=== PATIENT | female | born 1945 | race Caucasian/White ===

== ENCOUNTER 2021-06-22 05:31 | Inpatient (IN) | payer MEDICARE ==
[2021-06-22] MEDS ORDERED: Povidone-Iodine 10% Soln 118.25 ML Bottle ONE (06:41)
[2021-06-22] MEDS ORDERED: Lactated Ringers 1,000 ML IV SCH (07:00)
[2021-06-22] MEDS ORDERED: Nozin Nasal Sanitizer NASBOTH ONE (07:00)
[2021-06-22] MEDS ORDERED: ceFAZolin 2 GM in Premix Bag 1 BAG IV ONE (07:00)
[2021-06-22] MEDS ORDERED: SODIUM CHLORIDE 0.9% IV ONE (07:30)
[2021-06-22] MEDS ORDERED: TRANEXAMIC ACID IV ONE (07:30)
[2021-06-22] MEDS ORDERED: Propofol 200 MG/20 ML SDV ONE ×2 (07:39→08:51)
[2021-06-22] MEDS ORDERED: fentaNYL 100 MCG/2 ML SDV ONE (07:39)
[2021-06-22] MEDS ORDERED: Midazolam 1 MG/ML 2 ML SDV ONE (07:39)
[2021-06-22] MEDS ORDERED: Lactated Ringers 1,000 ML ONE (09:15)
[2021-06-22] MEDS ORDERED: SODIUM CHLORIDE 0.9% IV PRN (09:30)
[2021-06-22] MEDS ORDERED: TRANEXAMIC ACID IV PRN (09:30)
[2021-06-22] MEDS ORDERED: Morphine 2 MG/ML SYRINGE IVPUSH PRN (09:39)
[2021-06-22] MEDS ORDERED: Acetaminophen 325 MG Tab PO PRN (09:39)
[2021-06-22] MEDS ORDERED: Magnesium Hydroxide 400 MG/5 ML Susp 30 ML Cup PO PRN (09:39)
[2021-06-22] MEDS: Acetaminophen/oxyCODONE 325-5 MG Tab PO PRN ×3 (11:26→20:18)
[2021-06-22] MEDS: amLODIPine 5 MG Tab PO SCH (12:42)
[2021-06-22] MEDS: Losartan 50 MG Tab PO SCH (12:43)
[2021-06-22] MEDS: ceFAZolin 1 GM in Premix Bag 1 BAG IV SCH ×2 (15:10→21:26)
[2021-06-22] MEDS: Furosemide 40 MG Tab PO SCH (15:11)
--- NOTE | 2021-06-22 15:25 | CR ---
Knee 1V or 2V Rt CLINICAL HISTORY: Status post total knee arthroplasty FINDINGS: Patient is status post recent total knee arthroplasty. Components appear well seated. There is intra-articular and subcutaneous air
[2021-06-22] MEDS: Sodium Chloride 0.9% 1,000 ML IV SCH (17:43)
[2021-06-22] MEDS: Morphine 2 MG/ML SYRINGE IVPUSH PRN (17:44)
[2021-06-22] MEDS: Carvedilol 12.5 MG Tab PO SCH (20:19)
[2021-06-22] MEDS: Nozin Nasal Sanitizer NASBOTH SCH (20:21)
[2021-06-22] MEDS: Docusate Sodium 100 MG Cap PO SCH (20:22)
[2021-06-22] MEDS ORDERED: Diazepam 2 MG Tab PO PRN (21:44)
[2021-06-22] MEDS ORDERED: Ondansetron 4 MG/2 ML SDV IVPUSH PRN (21:57)
[2021-06-22] MEDS: hydrOXYzine HCl 10 MG Tab PO PRN (22:01)
[2021-06-23] MEDS: Morphine 2 MG/ML SYRINGE IVPUSH PRN (01:05)
[2021-06-23] MEDS: Sodium Chloride 0.9% 1,000 ML IV SCH ×2 (01:37→10:42)
[2021-06-23] MEDS: Acetaminophen/oxyCODONE 325-5 MG Tab PO PRN ×4 (03:59→18:23)
[2021-06-23] MEDS: ceFAZolin 1 GM in Premix Bag 1 BAG IV SCH (05:47)
[2021-06-23] MEDS: Furosemide 40 MG Tab PO SCH ×2 (08:17→14:34)
--- NOTE | 2021-06-23 08:20 | PCM.SURGPN ---
- General Info Date of Service: 06/23/21 Date of Surgery/Procedure: 06/22/21 POD#: 1 Post-Op Diagnosis: right total knee arthroplasty Admission Diagnosis/Problem: Knee joint operation Functional Status: Reports: Incentive Spirometry - Review of Systems General: Denies: Fever, Weakness, Chills Pulmonary: Denies: Shortness of Breath Cardiovascular: Denies: Chest Pain, Palpitations Gastrointestinal: Reports: Nausea. Denies: Vomiting Musculoskeletal: Reports: Leg Pain (right ), Joint Pain (right knee ), Joint Swelling (right knee ), Other (right foot musculoskeletal cramps ) Neurological: Reports: No Symptoms Psychiatric: Reports: No Symptoms - Patient Data Vitals - Most Recent: Last Vital Signs Temp 98.1 F 06/23/21 07:00 Pulse 77 06/23/21 07:00 Resp 18 06/23/21 07:00 BP 164/62 H 06/23/21 07:00 Pulse Ox 96 06/23/21 07:00 Weight - Most Recent: 138 lb 4.8 oz I&O - Last 24 Hours: Intake & Output 06/22/21 06/23/21 06/23/21 22:59 06:59 14:59 Intake Total 928 1512 Output Total 1560 2150 Balance -632 -638 Lab Results Last 24 Hrs: Laboratory Results - last 24 hr 06/23/21 Range/Units 05:30 WBC 11.7 H (4.5-11.0) K/uL RBC 3.56 (3.30-5.50) M/uL Hgb 11.3 L (12.0-15.0) g/dL Hct 34.3 L (36.0-48.0) % MCV 96 (80-98) fL MCH 32 H (27-31) pg MCHC 33 (32-36) % Plt Count 251 (150-400) K/uL Med Orders - Current: Current Medications Acetaminophen (Acetaminophen 325 Mg Tab) 650 mg PO Q4H PRN PRN Reason: Pain/Fever Hydrocodone Bitart/Acetaminophen (Acetaminophen/Hydrocodone 325-5 Mg Tab) 1 tab PO Q4H PRN PRN Reason: Pain Allopurinol (Allopurinol 100 Mg Tab) 300 mg PO DAILY [facility] Amlodipine Besylate (Amlodipine 5 Mg Tab) 10 mg PO DAILY [facility] Last Admin: 06/22/21 12:42 Dose: 10 mg Documented by: Bandage/Support Products (Nozin Nasal Infusion Rn) 1 applic NASBOTH BID [facility] Stop: 06/28/21 21:01 Last Admin: 06/22/21 20:21 Dose: 1 applic Documented by: Carvedilol (Carvedilol 12.5 Mg Tab) 25 mg PO BID [facility] Last Admin: 06/22/21 20:19 Dose: 25 mg Documented by: Cyclobenzaprine HCl (Cyclobenzaprine 10 Mg Tab) 5 mg PO Q8H PRN PRN Reason: Muscle Spasm - Painful Diazepam (Diazepam 2 Mg Tab) 2 mg PO BEDTIME PRN PRN Reason: Insomnia Last Admin: 06/22/21 22:01 Dose: 2 mg Documented by: Docusate Sodium (Docusate Sodium 100 Mg Cap) 100 mg PO BID [facility] Last Admin: 06/22/21 20:22 Dose: 100 mg Documented by: Enoxaparin Sodium (Enoxaparin 30 Mg/0.3 Ml Syringe) 30 mg SUBCUT DAILY [facility] Furosemide (Furosemide 40 Mg Tab) 40 mg PO BIDDIURETIC [facility] Last Admin: 06/22/21 15:11 Dose: 40 mg Documented by: Hydroxyzine HCl (Hydroxyzine Hcl 10 Mg Tab) 10 mg PO Q8H PRN PRN Reason: Muscle Spasm - Painful Last Admin: 06/22/21 22:01 Dose: 10 mg Documented by: Sodium Chloride (Normal Saline) 1,000 mls @ 125 mls/hr IV ASDIRECTED [facility] Last Admin: 06/23/21 01:37 Dose: 125 mls/hr Documented by: Losartan Potassium (Losartan 50 Mg Tab) 100 mg PO DAILY [facility] Last Admin: 06/22/21 12:43 Dose: 100 mg Documented by: Magnesium Hydroxide (Magnesium Hydroxide 400 Mg/5 Ml Susp 30 Ml Cup) 30 ml PO BID PRN PRN Reason: Constipation Morphine Sulfate (Morphine 2 Mg/Ml Syringe) 1 mg IVPUSH Q3H PRN PRN Reason: Breakthrough Pain Last Admin: 06/23/21 01:05 Dose: 1 mg Documented by: Ondansetron HCl (Ondansetron 4 Mg/2 Ml Sdv) 4 mg IVPUSH Q6H PRN PRN Reason: Nausea/Vomiting Oxycodone/Acetaminophen (Acetaminophen/Oxycodone 325-5 Mg Tab) 1 - 2 tab PO Q4H PRN PRN Reason: Pain Last Admin: 06/23/21 03:59 Dose: 2 tab Documented by: Spironolactone (Spironolactone 25 Mg Tab) 50 mg PO DAILY [facility] Discontinued Medications Bandage/Support Products (Nozin Nasal Infusion Rn) 1 applic NASBOTH ONETIME ONE Stop: 06/22/21 07:01 Last Admin: 06/22/21 06:55 Dose: 1 applic Documented by: Fentanyl (Fentanyl 100 Mcg/2 Ml Sdv) Confirm Administered Dose 100 mcg .ROUTE .STK-MED ONE Stop: 06/22/21 07:40 Cefazolin Sodium/Dextrose 2 gm (/ Premix) 50 mls @ 100 mls/hr IV ONETIME ONE Stop: 06/22/21 07:29 Last Admin: 06/22/21 07:41 Dose: 100 mls/hr Documented by: Lactated Ringer's (Ringers, Lactated) 1,000 mls @ 75 mls/hr IV ASDIRECTED [facility] Last Admin: 06/22/21 06:00 Dose: 75 mls/hr Documented by: Tranexamic Acid 625 mg/ Sodium (Chloride) 56.25 mls @ 225 mls/hr IV ONETIME ONE Stop: 06/22/21 07:44 Last Admin: 06/22/21 08:14 Dose: 225 mls/hr Documented by: Tranexamic Acid 625 mg/ Sodium (Chloride) 56.25 mls @ 225 mls/hr IV ONETIME PRN PRN Reason: 2ND DOSE IF REQUESTED BY Lactated Ringer's (Ringers, Lactated) Confirm Administered Dose 1,000 mls @ as directed .ROUTE .STK-MED ONE Stop: 06/22/21 09:16 Cefazolin Sodium/Dextrose 1 gm (/ Premix) 50 mls @ 200 mls/hr IV Q8H [facility] Stop: 06/23/21 06:14 Last Admin: 06/23/21 05:47 Dose: 200 mls/hr Documented by: Midazolam HCl (Midazolam 1 Mg/Ml 2 Ml Sdv) Confirm Administered Dose 2 mg .ROUTE .STK-MED ONE Stop: 06/22/21 07:40 Morphine Sulfate (Morphine 2 Mg/Ml Syringe) 1 mg IVPUSH Q1H PRN PRN Reason: Breakthrough Pain Last Admin: 06/22/21 12:50 Dose: 1 mg Documented by: Povidone Iodine (Povidone-Iodine 10% Soln 118.25 Ml Bottle) Confirm Administered Dose 1 ml .ROUTE .STK-MED ONE Stop: 06/22/21 06:42 Propofol (Propofol 200 Mg/20 Ml Sdv) Confirm Administered Dose 200 mg .ROUTE .STK-MED ONE Stop: 06/22/21 07:40 Propofol (Propofol 200 Mg/20 Ml Sdv) Confirm Administered Dose 200 mg .ROUTE .STK-MED ONE Stop: 06/22/21 08:52 - Exam Wound/Incisions: Dressing Dry and Intact, No Drainage Quality Assessment: Urine Catheter, DVT Prophylaxis General: Alert, Oriented, Cooperative, No Acute Distress Extremities: Pedal Edema, Joint Swelling (right knee ), Leg Pain (right ), Limited Range of Motion (d/t postoperative dressing and pain of right knee ). No: Eliecer's Sign Skin: Dry, Intact Neurological: No New Focal Deficit Psy/Mental Status: Alert, Normal Affect, Normal Mood Sepsis Event Note - Evaluation Sepsis Screening Result: No Definite Risk - Focused Exam Vital Signs: Vital Signs Temp Pulse Pulse Resp BP BP Pulse Ox 06/23/21 07:00 98.1 F 77 18 164/62 H 96 06/23/21 02:56 98.4 F 79 18 173/71 H 95 06/22/21 23:30 97.4 F 76 18 168/64 H 94 L 06/22/21 20:24 96.7 F L 85 16 165/68 H 92 L 06/22/21 20:19 85 168/69 H - Problem List & Annotations (1) Postoperative anemia SNOMED Code(s): 528648502, 973848119 Code(s): D64.9 - ANEMIA, UNSPECIFIED Status: Acute Current Visit: Yes (2) Status post total right knee replacement SNOMED Code(s): 4014088854044, 8250756394306 Code(s): Z96.651 - PRESENCE OF RIGHT ARTIFICIAL KNEE JOINT Status: Acute Current Visit: Yes - Problem List Review Problem List Initiated/Reviewed/Updated: Yes - My Orders Last 24 Hours: Active Orders 24 hr Category Date Time Status Patient Status [ADT] Routine ADT 06/22/21 09:39 Active Ambulate [RC] QID Care 06/22/21 09:39 Active Antiembolic Devices [RC] .Routine Care 06/22/21 09:39 Active Head of Bed Elevation [RC] ASDIRECTED Care 06/22/21 09:39 Active Intake and Output [RC] QSHIFT Care 06/22/21 09:39 Active May Shower [RC] ASDIRECTED Care 06/22/21 09:39 Active Neurovascular Check [RC] Q4H Care 06/22/21 09:39 Active Notify Provider Vital Signs [RC] ASDIRECTED Care 06/22/21 09:39 Active Oxygen Therapy [RC] .PRN Care 06/22/21 09:39 Active RT Incentive Spirometry [RC] Q1HWA Care 06/22/21 09:39 Active Up to Chair [RC] QID Care 06/22/21 09:39 Active VTE/DVT Education [RC] Click to Edit Care 06/22/21 09:39 Active Wound Care [RC] Q12H Care 06/22/21 09:39 Active Consult to Case Management/Safety Lamp Keeper [CONS] Cons 06/22/21 09:39 Active Routine OT Evaluation and Treatment [CONS] Routine Cons 06/22/21 09:39 Active PT Evaluation and Treatment [CONS] Routine Cons 06/22/21 09:39 Active PT Evaluation and Treatment [CONS] Routine Cons 06/22/21 09:39 Active Regular Diet [DIET] Diet 06/22/21 Lunch Active Acetaminophen [TylenoL] Med 06/22/21 09:39 Active 650 mg PO Q4H PRN Acetaminophen/HYDROcodone [[place] 325-5 MG] Med 06/22/21 09:39 Active 1 tab PO Q4H PRN Acetaminophen/oxyCODONE [Percocet 325-5 MG] Med 06/22/21 09:39 Active 1 - 2 tab PO Q4H PRN Cyclobenzaprine [Flexeril] Med 06/23/21 08:10 Active 5 mg PO Q8H PRN Docusate Sodium [Colace] Med 06/22/21 21:00 Active 100 mg PO BID Enoxaparin [Lovenox] Med 06/23/21 09:00 Active 30 mg SUBCUT DAILY Furosemide [Lasix] Med 06/22/21 14:00 Active 40 mg PO BIDDIURETIC Losartan [Cozaar] Med 06/22/21 12:00 Active 100 mg PO DAILY Magnesium Hydroxide [Milk of Magnesia] Med 06/22/21 09:39 Active 30 ml PO BID PRN Morphine Med 06/22/21 14:01 Active 1 mg IVPUSH Q3H PRN Nozin [ Nasal Infusion Rn] Med 06/22/21 21:00 Active 1 applic NASBOTH BID Ondansetron [Zofran] Med 06/22/21 21:57 Active 4 mg IVPUSH Q6H PRN Sodium Chloride 0.9% [Normal Saline] 1,000 ml Med 06/22/21 09:45 Active IV ASDIRECTED Spironolactone [Aldactone] Med 06/23/21 09:00 Active 50 mg PO DAILY allopurinoL [Zyloprim] Med 06/23/21 09:00 Active 300 mg PO DAILY amLODIPine [Norvasc] Med 06/22/21 12:00 Active 10 mg PO DAILY carvediloL [Coreg] Med 06/22/21 21:00 Active 25 mg PO BID diazePAM [Valium] Med 06/22/21 21:44 Active 2 mg PO BEDTIME PRN hydrOXYzine HCL [Atarax] Med 06/22/21 21:46 Active 10 mg PO Q8H PRN Antiembolic Hose [OM.PC] Routine Oth 06/22/21 09:39 Ordered DVT/VTE Prophylaxis Reflex [OM.PC] Routine Oth 06/22/21 09:39 Ordered Ice Therapy [OM.PC] Per Unit Routine Oth 06/22/21 09:39 Ordered Medication Continuation Instructions [OM.PC] Per Unit Oth 06/22/21 09:39 Ordered Routine Oral Care [OM.PC] Routine Oth 06/22/21 09:39 Ordered Sequential Compression Device [OM.PC] Routine Oth 06/22/21 09:39 Ordered Weight bearing status [OM.PC] Routine Oth 06/22/21 09:44 Ordered Resuscitation Status Routine Resus Stat 06/22/21 09:39 Ordered Medication Orders Acetaminophen (Acetaminophen 325 Mg Tab) 650 mg PO Q4H PRN PRN Reason: Pain/Fever Hydrocodone Bitart/Acetaminophen (Acetaminophen/Hydrocodone 325-5 Mg Tab) 1 tab PO Q4H PRN PRN Reason: Pain Allopurinol (Allopurinol 100 Mg Tab) 300 mg PO DAILY [facility] Amlodipine Besylate (Amlodipine 5 Mg Tab) 10 mg PO DAILY [facility] Last Admin: 06/22/21 12:42 Dose: 10 mg Documented by: CAYETANO Bandage/Support Products (Nozin Nasal Infusion Rn) 1 applic NASBOTH BID [facility] Stop: 06/28/21 21:01 Last Admin: 06/22/21 20:21 Dose: 1 applic Documented by: BARBARA Carvedilol (Carvedilol 12.5 Mg Tab) 25 mg PO BID [facility] Last Admin: 06/22/21 20:19 Dose: 25 mg Documented by: BARBARA Cyclobenzaprine HCl (Cyclobenzaprine 10 Mg Tab) 5 mg PO Q8H PRN PRN Reason: Muscle Spasm - Painful Diazepam (Diazepam 2 Mg Tab) 2 mg PO BEDTIME PRN PRN Reason: Insomnia Last Admin: 06/22/21 22:01 Dose: 2 mg Documented by: BARBARA Docusate Sodium (Docusate Sodium 100 Mg Cap) 100 mg PO BID [facility] Last Admin: 06/22/21 20:22 Dose: 100 mg Documented by: BARBARA Enoxaparin Sodium (Enoxaparin 30 Mg/0.3 Ml Syringe) 30 mg SUBCUT DAILY [facility] Furosemide (Furosemide 40 Mg Tab) 40 mg PO BIDDIURETIC [facility] Last Admin: 06/22/21 15:11 Dose: 40 mg Documented by: CAYETANO Hydroxyzine HCl (Hydroxyzine Hcl 10 Mg Tab) 10 mg PO Q8H PRN PRN Reason: Muscle Spasm - Painful Last Admin: 06/22/21 22:01 Dose: 10 mg Documented by: BARBARA Sodium Chloride (Normal Saline) 1,000 mls @ 125 mls/hr IV ASDIRECTED [facility] Last Admin: 06/23/21 01:37 Dose: 125 mls/hr Documented by: Infusion: 06/23/21 01:37 Dose: 125 mls/hr Documented by: Admin: 06/22/21 17:43 Dose: 125 mls/hr Documented by: CAYETANO Losartan Potassium (Losartan 50 Mg Tab) 100 mg PO DAILY [facility] Last Admin: 06/22/21 12:43 Dose: 100 mg Documented by: CAYETANO Magnesium Hydroxide (Magnesium Hydroxide 400 Mg/5 Ml Susp 30 Ml Cup) 30 ml PO BID PRN PRN Reason: Constipation Morphine Sulfate (Morphine 2 Mg/Ml Syringe) 1 mg IVPUSH Q3H PRN PRN Reason: Breakthrough Pain Last Admin: 06/23/21 01:05 Dose: 1 mg Documented by: Admin: 06/22/21 17:44 Dose: 1 mg Documented by: CAYETANO Ondansetron HCl (Ondansetron 4 Mg/2 Ml Sdv) 4 mg IVPUSH Q6H PRN PRN Reason: Nausea/Vomiting Oxycodone/Acetaminophen (Acetaminophen/Oxycodone 325-5 Mg Tab) 1 - 2 tab PO Q4H PRN PRN Reason: Pain Last Admin: 06/23/21 03:59 Dose: 2 tab Documented by: Admin: 06/22/21 20:18 Dose: 2 tab Documented by: Admin: 06/22/21 15:09 Dose: 2 tab Documented by: Admin: 06/22/21 11:26 Dose: 1 tab Documented by: CAYETANO Spironolactone (Spironolactone 25 Mg Tab) 50 mg PO DAILY [facility] - Assessment Assessment (Free Text/Narrative):: Patient is a pleasant 75-year-old female, status post right total knee arthroplasty, postop day #1. Patient tolerated surgery well with no complications. No acute events overnight. Patient has been hypertensive postoperatively. Home regimen of antihypertensive medications were all resumed this morning. Postop day #1 hemoglobin declined to 11.3. Patient has been asymptomatic with this post-operative anemia; denied lightheadedness, dizziness, nor vision changes. Patient also denied subjective fevers, chills, dyspnea, chest pain, palpitations. WBC slightly elevated at 11.7. Pain has been relatively well controlled thus far. Patient has been using a combination of oral Percocet and IV morphine for breakthrough pain. Patient did endorse emesis last night. Has had intermittent nausea since. As needed Zofran is available but has not been utilized. Tolerated breakfast without emesis. Patient worked with physical therapy yesterday afternoon, stood and pivoted from bed to chair, but did not ambulate any further than this due to pain with weight bearing. Past medical history significant for hypertension and stage 5 chronic kidney disease, of which patient refuses dialysis. Patient has a west catheter in place, I&Os have been monitored; patient has had good urine output following surgery. Patient endorsed musculoskeletal cramps in her right foot. Does report good oral fluid intake. Patient requires inpatient status at this time for further monitoring of post- operative vitals and anemia, in addition to further physical therapy services to progress functional mobility of right leg. Patient also requires adequate pain control with PO medication prior to discharge home. Plan: * Continue occupational and physical therapy services daily while in the hospital to progress ambulation and functional mobility of RLE. * Hypertension: all home antihypertensive medications resumed today. Continue to monitor vitals every 4 hours. * Postoperative anemia: stable at this time. Continue to monitor for symptoms. If patient becomes symptomatic will recheck a CBC. * Encouraged use of incentive spirometer hourly. * Continue with current pain regimen. Encouraged to take pain medication with some food to avoid nausea. PRN zofran is available. If continued nausea, will adjust pain regimen. Will need to transition the patient to PO medications prior to discharge. * Continue with 30 mg Lovenox subcutaneous daily for chemical DVT/VTE prophylaxis and bilateral lower extremity SCDs for mechanical DVT/VTE prophylaxis. * Chronic kidney disease stage V: Discontinued maintenance fluids. Continue to monitor strict I&O's. * Musculoskeletal cramps: added 5mg Flexeril PO q8 hrs prn for musculoskeletal cramps. If these remain unresolved, may consider repeat BMP to monitor electrolytes for any imbalance. * Anticipate dressing change on POD#2 by orthopedic provider. * Anticipate discharge to home with home health when medically stable and functional mobility improves. category planner aware and working on home health referral.
[2021-06-23] MEDS: Spironolactone 25 MG Tab PO SCH (09:14)
[2021-06-23] MEDS: hydrOXYzine HCl 10 MG Tab PO PRN (09:14)
[2021-06-23] MEDS: Nozin Nasal Sanitizer NASBOTH SCH ×2 (09:14→20:45)
[2021-06-23] MEDS: Docusate Sodium 100 MG Cap PO SCH ×2 (09:16→20:45)
[2021-06-23] MEDS: Losartan 50 MG Tab PO SCH (09:17)
[2021-06-23] MEDS: Carvedilol 12.5 MG Tab PO SCH ×2 (09:18→20:46)
[2021-06-23] MEDS: Enoxaparin 30 MG/0.3 ML Syringe SUBCUT SCH (09:19)
[2021-06-23] MEDS: Allopurinol 100 MG Tab PO SCH (09:20)
[2021-06-23] MEDS: amLODIPine 5 MG Tab PO SCH (09:20)
[2021-06-23] MEDS ORDERED: Sodium Chloride 0.9% 1,000 ML IV SCH (11:30)
[2021-06-23] MEDS: Calcium Carbonate 500 MG Tab.Chew PO PRN (18:23)
[2021-06-23] MEDS: Cyclobenzaprine 10 MG Tab PO PRN (22:50)
[2021-06-24] MEDS: Acetaminophen/oxyCODONE 325-5 MG Tab PO PRN (02:53)
[2021-06-24] MEDS: Cyclobenzaprine 10 MG Tab PO PRN ×2 (07:11→15:32)
[2021-06-24] MEDS: Furosemide 40 MG Tab PO SCH ×2 (07:15→13:24)
[2021-06-24] MEDS: Acetaminophen/HYDROcodone 325-5 MG Tab PO PRN ×4 (07:23→21:12)
[2021-06-24] MEDS: Calcium Carbonate 500 MG Tab.Chew PO PRN (09:26)
[2021-06-24] MEDS: Nozin Nasal Sanitizer NASBOTH SCH ×3 (09:38→20:05)
[2021-06-24] MEDS: Docusate Sodium 100 MG Cap PO SCH ×3 (09:40→20:05)
[2021-06-24] MEDS: Spironolactone 25 MG Tab PO SCH (09:40)
[2021-06-24] MEDS: Carvedilol 12.5 MG Tab PO SCH ×3 (09:41→20:05)
[2021-06-24] MEDS: Losartan 50 MG Tab PO SCH (09:42)
[2021-06-24] MEDS: Enoxaparin 30 MG/0.3 ML Syringe SUBCUT SCH (09:43)
[2021-06-24] MEDS: Allopurinol 100 MG Tab PO SCH (09:44)
[2021-06-24] MEDS: amLODIPine 5 MG Tab PO SCH (09:44)
--- NOTE | 2021-06-24 16:36 | PCM.SURGPN ---
- General Info Date of Service: 06/24/21 Date of Surgery/Procedure: 06/22/21 POD#: 2 Post-Op Diagnosis: s/p right total knee arthroplasty Functional Status: Reports: Pain Controlled, Tolerating Diet - Review of Systems General: Denies: Fever, Fatigue, Chills Pulmonary: Denies: Shortness of Breath Cardiovascular: Denies: Chest Pain, Palpitations Gastrointestinal: Reports: Nausea. Denies: Vomiting Musculoskeletal: Reports: Joint Pain (right knee ), Joint Swelling (right knee ) - Patient Data Vitals - Most Recent: Last Vital Signs Temp 97.5 F 06/24/21 14:54 Pulse 69 06/24/21 14:54 Resp 16 06/24/21 14:54 BP 138/69 06/24/21 14:54 Pulse Ox 93 L 06/24/21 14:54 Weight - Most Recent: 138 lb I&O - Last 24 Hours: Intake & Output 06/24/21 06/24/21 06/24/21 06:59 14:59 22:59 Intake Total 600 Output Total 825 350 Balance -825 250 Med Orders - Current: Current Medications Acetaminophen (Acetaminophen 325 Mg Tab) 650 mg PO Q4H PRN PRN Reason: Pain/Fever Hydrocodone Bitart/Acetaminophen (Acetaminophen/Hydrocodone 325-5 Mg Tab) 1 tab PO Q4H PRN PRN Reason: Pain Last Admin: 06/24/21 11:57 Dose: 1 tab Documented by: Allopurinol (Allopurinol 100 Mg Tab) 300 mg PO DAILY [facility] Last Admin: 06/24/21 09:44 Dose: 300 mg Documented by: Amlodipine Besylate (Amlodipine 5 Mg Tab) 10 mg PO DAILY [facility] Last Admin: 06/24/21 09:44 Dose: 10 mg Documented by: Bandage/Support Products (Nozin Nasal Profile Saw Operator) 1 applic NASBOTH BID [facility] Stop: 06/28/21 21:01 Last Admin: 06/24/21 09:38 Dose: 1 applic Documented by: Calcium Carbonate/Glycine (Calcium Carbonate 500 Mg Tab.Chew) 1,000 mg PO Q2H PRN PRN Reason: Indigestion Last Admin: 06/24/21 09:26 Dose: 1,000 mg Documented by: Carvedilol (Carvedilol 12.5 Mg Tab) 25 mg PO BID [facility] Last Admin: 06/24/21 09:41 Dose: 25 mg Documented by: Cyclobenzaprine HCl (Cyclobenzaprine 10 Mg Tab) 5 mg PO Q8H PRN PRN Reason: Muscle Spasm - Painful Last Admin: 06/24/21 15:32 Dose: 5 mg Documented by: Diazepam (Diazepam 2 Mg Tab) 2 mg PO BEDTIME PRN PRN Reason: Insomnia Last Admin: 06/22/21 22:01 Dose: 2 mg Documented by: Docusate Sodium (Docusate Sodium 100 Mg Cap) 100 mg PO BID [facility] Last Admin: 06/24/21 09:40 Dose: 100 mg Documented by: Enoxaparin Sodium (Enoxaparin 30 Mg/0.3 Ml Syringe) 30 mg SUBCUT DAILY [facility] Last Admin: 06/24/21 09:43 Dose: 30 mg Documented by: Furosemide (Furosemide 40 Mg Tab) 40 mg PO BIDDIURETIC [facility] Last Admin: 06/24/21 13:24 Dose: 40 mg Documented by: Hydroxyzine HCl (Hydroxyzine Hcl 10 Mg Tab) 10 mg PO Q8H PRN PRN Reason: Muscle Spasm - Painful Last Admin: 06/23/21 09:14 Dose: 10 mg Documented by: Losartan Potassium (Losartan 50 Mg Tab) 100 mg PO DAILY [facility] Last Admin: 06/24/21 09:42 Dose: 100 mg Documented by: Magnesium Hydroxide (Magnesium Hydroxide 400 Mg/5 Ml Susp 30 Ml Cup) 30 ml PO BID PRN PRN Reason: Constipation Morphine Sulfate (Morphine 2 Mg/Ml Syringe) 1 mg IVPUSH Q3H PRN PRN Reason: Breakthrough Pain Last Admin: 06/23/21 01:05 Dose: 1 mg Documented by: Ondansetron HCl (Ondansetron 4 Mg/2 Ml Sdv) 4 mg IVPUSH Q6H PRN PRN Reason: Nausea/Vomiting Last Admin: 06/24/21 09:26 Dose: 4 mg Documented by: Oxycodone/Acetaminophen (Acetaminophen/Oxycodone 325-5 Mg Tab) 1 - 2 tab PO Q4H PRN PRN Reason: Pain Last Admin: 06/24/21 02:53 Dose: 1 tab Documented by: Spironolactone (Spironolactone 25 Mg Tab) 50 mg PO DAILY [facility] Last Admin: 06/24/21 09:40 Dose: 50 mg Documented by: Discontinued Medications Bandage/Support Products (Nozin Nasal Profile Saw Operator) 1 applic NASBOTH ONETIME ONE Stop: 06/22/21 07:01 Last Admin: 06/22/21 06:55 Dose: 1 applic Documented by: Fentanyl (Fentanyl 100 Mcg/2 Ml Sdv) Confirm Administered Dose 100 mcg .ROUTE .STK-MED ONE Stop: 06/22/21 07:40 Cefazolin Sodium/Dextrose 2 gm (/ Premix) 50 mls @ 100 mls/hr IV ONETIME ONE Stop: 06/22/21 07:29 Last Admin: 06/22/21 07:41 Dose: 100 mls/hr Documented by: Lactated Ringer's (Ringers, Lactated) 1,000 mls @ 75 mls/hr IV ASDIRECTED [facility] Last Admin: 06/22/21 06:00 Dose: 75 mls/hr Documented by: Tranexamic Acid 625 mg/ Sodium (Chloride) 56.25 mls @ 225 mls/hr IV ONETIME ONE Stop: 06/22/21 07:44 Last Admin: 06/22/21 08:14 Dose: 225 mls/hr Documented by: Tranexamic Acid 625 mg/ Sodium (Chloride) 56.25 mls @ 225 mls/hr IV ONETIME PRN PRN Reason: 2ND DOSE IF REQUESTED BY Lactated Ringer's (Ringers, Lactated) Confirm Administered Dose 1,000 mls @ as directed .ROUTE .STK-MED ONE Stop: 06/22/21 09:16 Sodium Chloride (Normal Saline) 1,000 mls @ 125 mls/hr IV ASDIRECTED [facility] Last Admin: 06/23/21 10:42 Dose: 100 mls/hr Documented by: Cefazolin Sodium/Dextrose 1 gm (/ Premix) 50 mls @ 200 mls/hr IV Q8H [facility] Stop: 06/23/21 06:14 Last Admin: 06/23/21 05:47 Dose: 200 mls/hr Documented by: Sodium Chloride (Normal Saline) 1,000 mls @ 100 mls/hr IV ASDIRECTED [facility] Midazolam HCl (Midazolam 1 Mg/Ml 2 Ml Sdv) Confirm Administered Dose 2 mg .ROUTE .STK-MED ONE Stop: 06/22/21 07:40 Morphine Sulfate (Morphine 2 Mg/Ml Syringe) 1 mg IVPUSH Q1H PRN PRN Reason: Breakthrough Pain Last Admin: 06/22/21 12:50 Dose: 1 mg Documented by: Povidone Iodine (Povidone-Iodine 10% Soln 118.25 Ml Bottle) Confirm Administered Dose 1 ml .ROUTE .STK-MED ONE Stop: 06/22/21 06:42 Propofol (Propofol 200 Mg/20 Ml Sdv) Confirm Administered Dose 200 mg .ROUTE .STK-MED ONE Stop: 06/22/21 07:40 Propofol (Propofol 200 Mg/20 Ml Sdv) Confirm Administered Dose 200 mg .ROUTE .STK-MED ONE Stop: 06/22/21 08:52 - Exam Wound/Incisions: Dressing Dry and Intact, No Drainage Quality Assessment: DVT Prophylaxis General: Alert, Oriented, Cooperative, No Acute Distress Extremities: Pedal Edema, Leg Pain (right ), Limited Range of Motion (postoperative pain and swelling ) Skin: Dry, Intact Neurological: No New Focal Deficit Psy/Mental Status: Alert, Normal Affect Sepsis Event Note - Evaluation Sepsis Screening Result: No Definite Risk - Focused Exam Vital Signs: Vital Signs Temp Pulse Pulse Resp BP BP Pulse Ox 06/24/21 14:54 97.5 F 69 16 138/69 93 L 06/24/21 11:00 97.4 F 73 16 152/57 H 92 L 06/24/21 09:44 157/61 H 06/24/21 09:42 157/61 H 06/24/21 09:41 72 157/61 H 06/24/21 07:20 98.4 F 72 16 157/61 H 97 - Problem List & Annotations (1) Postoperative anemia SNOMED Code(s): 223165062, 263444764 Code(s): D64.9 - ANEMIA, UNSPECIFIED Status: Acute Current Visit: Yes (2) Status post total right knee replacement SNOMED Code(s): 1884420086466, 7296865954527 Code(s): Z96.651 - PRESENCE OF RIGHT ARTIFICIAL KNEE JOINT Status: Acute Current Visit: Yes - Problem List Review Problem List Initiated/Reviewed/Updated: Yes - My Orders Last 24 Hours: Active Orders 24 hr Category Date Time Status Calcium Carbonate [Tums] Med 06/23/21 17:51 Active 1,000 mg PO Q2H PRN Medication Orders Acetaminophen (Acetaminophen 325 Mg Tab) 650 mg PO Q4H PRN PRN Reason: Pain/Fever Hydrocodone Bitart/Acetaminophen (Acetaminophen/Hydrocodone 325-5 Mg Tab) 1 tab PO Q4H PRN PRN Reason: Pain Last Admin: 06/24/21 11:57 Dose: 1 tab Documented by: Admin: 06/24/21 07:23 Dose: 1 tab Documented by: BARBARA Allopurinol (Allopurinol 100 Mg Tab) 300 mg PO DAILY [facility] Last Admin: 06/24/21 09:44 Dose: 300 mg Documented by: ABBEY Cosigned by: CAPO Admin: 06/23/21 09:20 Dose: 300 mg Documented by: JOSE Amlodipine Besylate (Amlodipine 5 Mg Tab) 10 mg PO DAILY [facility] Last Admin: 06/24/21 09:44 Dose: 10 mg Documented by: ABBEY Cosigned by: CAPO Admin: 06/23/21 09:20 Dose: 10 mg Documented by: Admin: 06/22/21 12:42 Dose: 10 mg Documented by: CAYETANO Bandage/Support Products (Nozin Nasal Profile Saw Operator) 1 applic NASBOTH BID [facility] Stop: 06/28/21 21:01 Last Admin: 06/24/21 09:38 Dose: 1 applic Documented by: ABBEY Clemonsigned by: CAPO Admin: 06/23/21 20:45 Dose: 1 applic Documented by: Admin: 06/23/21 09:14 Dose: 1 applic Documented by: Admin: 06/22/21 20:21 Dose: 1 applic Documented by: BARBARA Calcium Carbonate/Glycine (Calcium Carbonate 500 Mg Tab.Chew) 1,000 mg PO Q2H PRN PRN Reason: Indigestion Last Admin: 06/24/21 09:26 Dose: 1,000 mg Documented by: Admin: 06/23/21 18:23 Dose: 1,000 mg Documented by: JOSE Carvedilol (Carvedilol 12.5 Mg Tab) 25 mg PO BID [facility] Last Admin: 06/24/21 09:41 Dose: 25 mg Documented by: ABBEY Cosigned by: CAPO Admin: 06/23/21 20:46 Dose: 25 mg Documented by: Admin: 06/23/21 09:18 Dose: 25 mg Documented by: Admin: 06/22/21 20:19 Dose: 25 mg Documented by: BARBARA Cyclobenzaprine HCl (Cyclobenzaprine 10 Mg Tab) 5 mg PO Q8H PRN PRN Reason: Muscle Spasm - Painful Last Admin: 06/24/21 15:32 Dose: 5 mg Documented by: Admin: 06/24/21 07:11 Dose: 5 mg Documented by: Admin: 06/23/21 22:50 Dose: 5 mg Documented by: VALERIE Diazepam (Diazepam 2 Mg Tab) 2 mg PO BEDTIME PRN PRN Reason: Insomnia Last Admin: 06/22/21 22:01 Dose: 2 mg Documented by: BARBARA Docusate Sodium (Docusate Sodium 100 Mg Cap) 100 mg PO BID [facility] Admin: 06/24/21 09:40 Dose: 100 mg Documented by: ABBEY Cosigned by: CAPO Admin: 06/23/21 20:45 Dose: 100 mg Documented by: Admin: 06/23/21 09:16 Dose: 100 mg Documented by: Admin: 06/22/21 20:22 Dose: 100 mg Documented by: BARBARA Enoxaparin Sodium (Enoxaparin 30 Mg/0.3 Ml Syringe) 30 mg SUBCUT DAILY [facility] Admin: 06/24/21 09:43 Dose: 30 mg Documented by: ABBEY Cosigned by: CAPO Admin: 06/23/21 09:19 Dose: 30 mg Documented by: JOSE Furosemide (Furosemide 40 Mg Tab) 40 mg PO BIDDIURETIC [facility] Admin: 06/24/21 13:24 Dose: 40 mg Documented by: ABBEY Cosigned by: CAPO Admin: 06/24/21 07:15 Dose: 40 mg Documented by: Admin: 06/23/21 14:34 Dose: 40 mg Documented by: Admin: 06/23/21 08:17 Dose: 40 mg Documented by: Admin: 06/22/21 15:11 Dose: 40 mg Documented by: CAYETANO Hydroxyzine HCl (Hydroxyzine Hcl 10 Mg Tab) 10 mg PO Q8H PRN PRN Reason: Muscle Spasm - Painful Last Admin: 06/23/21 09:14 Dose: 10 mg Documented by: Admin: 06/22/21 22:01 Dose: 10 mg Documented by: BARBARA Losartan Potassium (Losartan 50 Mg Tab) 100 mg PO DAILY [facility] Last Admin: 06/24/21 09:42 Dose: 100 mg Documented by: ABBEY Cosigned by: CAPO Admin: 06/23/21 09:17 Dose: 100 mg Documented by: Admin: 06/22/21 12:43 Dose: 100 mg Documented by: CAYETANO Magnesium Hydroxide (Magnesium Hydroxide 400 Mg/5 Ml Susp 30 Ml Cup) 30 ml PO BID PRN PRN Reason: Constipation Morphine Sulfate (Morphine 2 Mg/Ml Syringe) 1 mg IVPUSH Q3H PRN PRN Reason: Breakthrough Pain Last Admin: 06/23/21 01:05 Dose: 1 mg Documented by: Admin: 06/22/21 17:44 Dose: 1 mg Documented by: CAYETANO Ondansetron HCl (Ondansetron 4 Mg/2 Ml Sdv) 4 mg IVPUSH Q6H PRN PRN Reason: Nausea/Vomiting Last Admin: 06/24/21 09:26 Dose: 4 mg Documented by: BARBARA Oxycodone/Acetaminophen (Acetaminophen/Oxycodone 325-5 Mg Tab) 1 - 2 tab PO Q4H PRN PRN Reason: Pain Last Admin: 06/24/21 02:53 Dose: 1 tab Documented by: Admin: 06/23/21 18:23 Dose: 1 tab Documented by: Admin: 06/23/21 12:37 Dose: 2 tab Documented by: Admin: 06/23/21 08:14 Dose: 2 tab Documented by: Admin: 06/23/21 03:59 Dose: 2 tab Documented by: Admin: 06/22/21 20:18 Dose: 2 tab Documented by: Admin: 06/22/21 15:09 Dose: 2 tab Documented by: Admin: 06/22/21 11:26 Dose: 1 tab Documented by: CAYETANO Spironolactone (Spironolactone 25 Mg Tab) 50 mg PO DAILY [facility] Admin: 06/24/21 09:40 Dose: 50 mg Documented by: ABBEY Cosigned by: CAPO Admin: 06/23/21 09:14 Dose: 50 mg Documented by: SCHOCOL - Assessment Assessment (Free Text/Narrative):: Patient is a pleasant 75 y/o female, s/p right total knee arthroplasty, POD #2. Patient had no acute events overnight. Remains hemodynamically stable. Hypertension on POD#1, blood pressures have been improving over the past 24 hours. Post-operative anemia stable at this time, patient has been asymptomatic with this. Pain has been well controlled at rest, increased with attempts to weight bear or ambulate. Has transitioned to oral medications for pain control, had recurrent nausea with the Percocet. Has been taking [place] [address] this afternoon and tolerating well without nausea or emesis. Tolerating regular diet well. Has been compliant with PT and OT daily while in the hospital. Ambulated 18 ft with FWW with physical therapy today. Is requiring assistance with transfer of RLE into and out of bed with transfers. Requires assistance and use of adaptive equipment to complete ADLs. Past medical history significant for CKD stage 5. Urine output slightly declined today after discontinuing IV fluids. Patient continues to require inpatient status at this time for post-operative vital and anemia monitoring, as well as additional therapy services to progress functional mobility of RLE prior to discharge to home. Plan: * Continue with PT and OT services daily while in the hospital. * Continue with [place] and Tylenol for pain control. PRN zofran available as needed for nausea. * Continue with 30 mg Lovenox subcutaneous daily for DVT/VTE prophylaxis and bilateral LE SCDs for mechanical prophylaxis. * Nursing communication provided to remove west catheter today, as ambulation abilities improved. * Dressing changed on POD#1. Anticipate dressing change again on POD#3 by orthopedic provider. * Postoperative anemia stable at this time; continue to monitor for symptoms. Can recheck a H&H if patient becomes symptomatic. Continue to monitor vitals q4 hrs. * Continue strict I&O monitoring for CKD; encouraged good oral intake, as maintenance fluids have been discontinued. * Anticipate dc to home when medically stable and functional mobilities of RLE improve, home health referral is in the works.
[2021-06-25] MEDS: Cyclobenzaprine 10 MG Tab PO PRN (00:10)
[2021-06-25] MEDS: Furosemide 40 MG Tab PO SCH ×2 (08:05→14:48)
[2021-06-25] MEDS ORDERED: Acetaminophen/oxyCODONE 325-5 MG Tab PO PRN (08:20)
--- NOTE | 2021-06-25 08:37 | PCM.SURGPN ---
- General Info Date of Service: 06/25/21 Date of Surgery/Procedure: 06/22/21 POD#: 3 Post-Op Diagnosis: right knee osteoarthritis Admission Diagnosis/Problem: Knee joint operation Functional Status: Reports: Pain Controlled (at rest, increased with weight bearing ), Tolerating Diet, Ambulating (with FWW), Urinating, Incentive Spirometry - Review of Systems General: Denies: Fever, Malaise, Chills Pulmonary: Denies: Shortness of Breath Cardiovascular: Denies: Chest Pain, Palpitations Musculoskeletal: Reports: Leg Pain (right ), Joint Pain (right knee ), Joint Swelling (right knee ) Skin: Reports: Bruising (minimal, right knee ) - Patient Data Vitals - Most Recent: Last Vital Signs Temp 97.4 F 06/25/21 07:13 Pulse 73 06/25/21 07:13 Resp 16 06/25/21 07:13 BP 132/59 L 06/25/21 07:13 Pulse Ox 96 06/25/21 07:13 Weight - Most Recent: 138 lb I&O - Last 24 Hours: Intake & Output 06/24/21 06/25/21 06/25/21 22:59 06:59 14:59 Intake Total 480 Output Total 650 Balance -170 Med Orders - Current: Current Medications Acetaminophen (Acetaminophen 325 Mg Tab) 650 mg PO Q4H PRN PRN Reason: Pain/Fever Hydrocodone Bitart/Acetaminophen (Acetaminophen/Hydrocodone 325-5 Mg Tab) 1 - 2 tab PO Q4H PRN PRN Reason: Pain Allopurinol (Allopurinol 100 Mg Tab) 300 mg PO DAILY [facility] Last Admin: 06/24/21 09:44 Dose: 300 mg Documented by: Amlodipine Besylate (Amlodipine 5 Mg Tab) 10 mg PO DAILY [facility] Last Admin: 06/24/21 09:44 Dose: 10 mg Documented by: Bandage/Support Products (Nozin Nasal [employer] Contractor Administrator) 1 applic NASBOTH BID [facility] Stop: 06/28/21 21:01 Last Admin: 06/24/21 20:05 Dose: Not Given Documented by: Calcium Carbonate/Glycine (Calcium Carbonate 500 Mg Tab.Chew) 1,000 mg PO Q2H PRN PRN Reason: Indigestion Last Admin: 06/24/21 09:26 Dose: 1,000 mg Documented by: Carvedilol (Carvedilol 12.5 Mg Tab) 25 mg PO BID [facility] Last Admin: 06/24/21 20:05 Dose: Not Given Documented by: Cyclobenzaprine HCl (Cyclobenzaprine 10 Mg Tab) 5 mg PO Q8H PRN PRN Reason: Muscle Spasm - Painful Last Admin: 06/25/21 00:10 Dose: 5 mg Documented by: Diazepam (Diazepam 2 Mg Tab) 2 mg PO BEDTIME PRN PRN Reason: Insomnia Last Admin: 06/22/21 22:01 Dose: 2 mg Documented by: Docusate Sodium (Docusate Sodium 100 Mg Cap) 100 mg PO BID [facility] Last Admin: 06/24/21 20:05 Dose: Not Given Documented by: Enoxaparin Sodium (Enoxaparin 30 Mg/0.3 Ml Syringe) 30 mg SUBCUT DAILY [facility] Last Admin: 06/24/21 09:43 Dose: 30 mg Documented by: Furosemide (Furosemide 40 Mg Tab) 40 mg PO BIDDIURETIC [facility] Last Admin: 06/25/21 08:05 Dose: 40 mg Documented by: Hydroxyzine HCl (Hydroxyzine Hcl 10 Mg Tab) 10 mg PO Q8H PRN PRN Reason: Muscle Spasm - Painful Last Admin: 06/23/21 09:14 Dose: 10 mg Documented by: Losartan Potassium (Losartan 50 Mg Tab) 100 mg PO DAILY [facility] Last Admin: 06/24/21 09:42 Dose: 100 mg Documented by: Magnesium Hydroxide (Magnesium Hydroxide 400 Mg/5 Ml Susp 30 Ml Cup) 30 ml PO BID PRN PRN Reason: Constipation Morphine Sulfate (Morphine 2 Mg/Ml Syringe) 1 mg IVPUSH Q3H PRN PRN Reason: Breakthrough Pain Last Admin: 06/23/21 01:05 Dose: 1 mg Documented by: Ondansetron HCl (Ondansetron 4 Mg/2 Ml Sdv) 4 mg IVPUSH Q6H PRN PRN Reason: Nausea/Vomiting Last Admin: 06/24/21 09:26 Dose: 4 mg Documented by: Oxycodone/Acetaminophen (Acetaminophen/Oxycodone 325-5 Mg Tab) 1 tab PO Q4H PRN PRN Reason: Pain Spironolactone (Spironolactone 25 Mg Tab) 50 mg PO DAILY [facility] Last Admin: 06/24/21 09:40 Dose: 50 mg Documented by: Discontinued Medications Hydrocodone Bitart/Acetaminophen (Acetaminophen/Hydrocodone 325-5 Mg Tab) 1 tab PO Q4H PRN PRN Reason: Pain Last Admin: 06/24/21 21:12 Dose: 1 tab Documented by: Bandage/Support Products (Nozin Nasal [employer] Contractor Administrator) 1 applic NASBOTH ONETIME ONE Stop: 06/22/21 07:01 Last Admin: 06/22/21 06:55 Dose: 1 applic Documented by: Fentanyl (Fentanyl 100 Mcg/2 Ml Sdv) Confirm Administered Dose 100 mcg .ROUTE .STK-MED ONE Stop: 06/22/21 07:40 Cefazolin Sodium/Dextrose 2 gm (/ Premix) 50 mls @ 100 mls/hr IV ONETIME ONE Stop: 06/22/21 07:29 Last Admin: 06/22/21 07:41 Dose: 100 mls/hr Documented by: Lactated Ringer's (Ringers, Lactated) 1,000 mls @ 75 mls/hr IV ASDIRECTED [facility] Last Admin: 06/22/21 06:00 Dose: 75 mls/hr Documented by: Tranexamic Acid 625 mg/ Sodium (Chloride) 56.25 mls @ 225 mls/hr IV ONETIME ONE Stop: 06/22/21 07:44 Last Admin: 06/22/21 08:14 Dose: 225 mls/hr Documented by: Tranexamic Acid 625 mg/ Sodium (Chloride) 56.25 mls @ 225 mls/hr IV ONETIME PRN PRN Reason: 2ND DOSE IF REQUESTED BY Lactated Ringer's (Ringers, Lactated) Confirm Administered Dose 1,000 mls @ as directed .ROUTE .STK-MED ONE Stop: 06/22/21 09:16 Sodium Chloride (Normal Saline) 1,000 mls @ 125 mls/hr IV ASDIRECTED [facility] Last Admin: 06/23/21 10:42 Dose: 100 mls/hr Documented by: Cefazolin Sodium/Dextrose 1 gm (/ Premix) 50 mls @ 200 mls/hr IV Q8H [facility] Stop: 06/23/21 06:14 Last Admin: 06/23/21 05:47 Dose: 200 mls/hr Documented by: Sodium Chloride (Normal Saline) 1,000 mls @ 100 mls/hr IV ASDIRECTED [facility] Midazolam HCl (Midazolam 1 Mg/Ml 2 Ml Sdv) Confirm Administered Dose 2 mg .ROUTE .STK-MED ONE Stop: 06/22/21 07:40 Morphine Sulfate (Morphine 2 Mg/Ml Syringe) 1 mg IVPUSH Q1H PRN PRN Reason: Breakthrough Pain Last Admin: 06/22/21 12:50 Dose: 1 mg Documented by: Oxycodone/Acetaminophen (Acetaminophen/Oxycodone 325-5 Mg Tab) 1 - 2 tab PO Q4H PRN PRN Reason: Pain Last Admin: 06/24/21 02:53 Dose: 1 tab Documented by: Povidone Iodine (Povidone-Iodine 10% Soln 118.25 Ml Bottle) Confirm Administered Dose 1 ml .ROUTE .STK-MED ONE Stop: 06/22/21 06:42 Propofol (Propofol 200 Mg/20 Ml Sdv) Confirm Administered Dose 200 mg .ROUTE .STK-MED ONE Stop: 06/22/21 07:40 Propofol (Propofol 200 Mg/20 Ml Sdv) Confirm Administered Dose 200 mg .ROUTE .STK-MED ONE Stop: 06/22/21 08:52 - Exam Wound/Incisions: Healing Well, Dressing Dry and Intact, No Drainage Quality Assessment: DVT Prophylaxis General: Alert, Oriented, Cooperative, No Acute Distress Extremities: Pedal Edema, Joint Swelling (right knee ), Leg Pain (right ), Limited Range of Motion (due to postoperative pain and swelling ). No: Eliecer's Sign Skin: Dry, Intact Neurological: No New Focal Deficit Psy/Mental Status: Alert, Normal Affect, Normal Mood Sepsis Event Note - Evaluation Sepsis Screening Result: No Definite Risk - Focused Exam Vital Signs: Vital Signs Temp Pulse Resp BP Pulse Ox 06/25/21 07:13 97.4 F 73 16 132/59 L 96 06/25/21 03:04 96.1 F L 63 16 122/46 L 92 L 06/25/21 00:00 97.3 F 68 16 131/57 L 95 - Problem List & Annotations (1) Postoperative anemia SNOMED Code(s): 080546331, 135452481 Code(s): D64.9 - ANEMIA, UNSPECIFIED Status: Acute Current Visit: Yes (2) Status post total right knee replacement SNOMED Code(s): 6605467217954, 6302899197783 Code(s): Z96.651 - PRESENCE OF RIGHT ARTIFICIAL KNEE JOINT Status: Acute Current Visit: Yes - Problem List Review Problem List Initiated/Reviewed/Updated: Yes - My Orders Last 24 Hours: Active Orders 24 hr Category Date Time Status Acetaminophen/HYDROcodone [[place] 325-5 MG] Med 06/25/21 08:19 Ordered 1 - 2 tab PO Q4H PRN Acetaminophen/oxyCODONE [Percocet 325-5 MG] Med 06/25/21 08:20 Ordered 1 tab PO Q4H PRN Medication Orders Acetaminophen (Acetaminophen 325 Mg Tab) 650 mg PO Q4H PRN PRN Reason: Pain/Fever Hydrocodone Bitart/Acetaminophen (Acetaminophen/Hydrocodone 325-5 Mg Tab) 1 - 2 tab PO Q4H PRN PRN Reason: Pain Allopurinol (Allopurinol 100 Mg Tab) 300 mg PO DAILY [facility] Last Admin: 06/24/21 09:44 Dose: 300 mg Documented by: ABBEY Cosigned by: CAPO Admin: 06/23/21 09:20 Dose: 300 mg Documented by: JOSE Amlodipine Besylate (Amlodipine 5 Mg Tab) 10 mg PO DAILY [facility] Last Admin: 06/24/21 09:44 Dose: 10 mg Documented by: ABBEY Cosigned by: CAPO Admin: 06/23/21 09:20 Dose: 10 mg Documented by: Admin: 06/22/21 12:42 Dose: 10 mg Documented by: CAYETANO Bandage/Support Products (Nozin Nasal Mason[employer] Contractor Administrator) 1 applic NASBOTH BID [facility] Stop: 06/28/21 21:01 Last Admin: 06/24/21 20:05 Dose: Not Given Documented by: Admin: 06/24/21 19:53 Dose: 1 applic Documented by: Admin: 06/24/21 09:38 Dose: 1 applic Documented by: ABBEY Cosigned by: CAPO Admin: 06/23/21 20:45 Dose: 1 applic Documented by: Admin: 06/23/21 09:14 Dose: 1 applic Documented by: Admin: 06/22/21 20:21 Dose: 1 applic Documented by: BARBARA Calcium Carbonate/Glycine (Calcium Carbonate 500 Mg Tab.Chew) 1,000 mg PO Q2H PRN PRN Reason: Indigestion Last Admin: 06/24/21 09:26 Dose: 1,000 mg Documented by: Admin: 06/23/21 18:23 Dose: 1,000 mg Documented by: JOSE Carvedilol (Carvedilol 12.5 Mg Tab) 25 mg PO BID [facility] Admin: 06/24/21 20:05 Dose: Not Given Documented by: Admin: 06/24/21 19:53 Dose: 25 mg Documented by: Admin: 06/24/21 09:41 Dose: 25 mg Documented by: ABBEY Cosigned by: CAPO Admin: 06/23/21 20:46 Dose: 25 mg Documented by: Admin: 06/23/21 09:18 Dose: 25 mg Documented by: Admin: 06/22/21 20:19 Dose: 25 mg Documented by: BARBARA Cyclobenzaprine HCl (Cyclobenzaprine 10 Mg Tab) 5 mg PO Q8H PRN PRN Reason: Muscle Spasm - Painful Last Admin: 06/25/21 00:10 Dose: 5 mg Documented by: Admin: 06/24/21 15:32 Dose: 5 mg Documented by: Admin: 06/24/21 07:11 Dose: 5 mg Documented by: Admin: 06/23/21 22:50 Dose: 5 mg Documented by: VALERIE Diazepam (Diazepam 2 Mg Tab) 2 mg PO BEDTIME PRN PRN Reason: Insomnia Last Admin: 06/22/21 22:01 Dose: 2 mg Documented by: BARBARA Docusate Sodium (Docusate Sodium 100 Mg Cap) 100 mg PO BID [facility] Admin: 06/24/21 20:05 Dose: Not Given Documented by: Admin: 06/24/21 19:53 Dose: 100 mg Documented by: Admin: 06/24/21 09:40 Dose: 100 mg Documented by: ABBEY Cosigned by: CAPO Admin: 06/23/21 20:45 Dose: 100 mg Documented by: Admin: 06/23/21 09:16 Dose: 100 mg Documented by: Admin: 06/22/21 20:22 Dose: 100 mg Documented by: BARBARA Enoxaparin Sodium (Enoxaparin 30 Mg/0.3 Ml Syringe) 30 mg SUBCUT DAILY [facility] Last Admin: 06/24/21 09:43 Dose: 30 mg Documented by: ABBEY Cosigned by: CAPO Admin: 06/23/21 09:19 Dose: 30 mg Documented by: JOSE Furosemide (Furosemide 40 Mg Tab) 40 mg PO BIDDIURETIC [facility] Last Admin: 06/25/21 08:05 Dose: 40 mg Documented by: MARK ANTHONY Admin: 06/24/21 13:24 Dose: 40 mg Documented by: ABBEY Cosigned by: CAPO Admin: 06/24/21 07:15 Dose: 40 mg Documented by: Admin: 06/23/21 14:34 Dose: 40 mg Documented by: Admin: 06/23/21 08:17 Dose: 40 mg Documented by: Admin: 06/22/21 15:11 Dose: 40 mg Documented by: CAYETANO Hydroxyzine HCl (Hydroxyzine Hcl 10 Mg Tab) 10 mg PO Q8H PRN PRN Reason: Muscle Spasm - Painful Last Admin: 06/23/21 09:14 Dose: 10 mg Documented by: Admin: 06/22/21 22:01 Dose: 10 mg Documented by: BARBARA Losartan Potassium (Losartan 50 Mg Tab) 100 mg PO DAILY [facility] Last Admin: 06/24/21 09:42 Dose: 100 mg Documented by: ABBEY Cosigned by: CAPO Admin: 06/23/21 09:17 Dose: 100 mg Documented by: Admin: 06/22/21 12:43 Dose: 100 mg Documented by: CAYETANO Magnesium Hydroxide (Magnesium Hydroxide 400 Mg/5 Ml Susp 30 Ml Cup) 30 ml PO BID PRN PRN Reason: Constipation Morphine Sulfate (Morphine 2 Mg/Ml Syringe) 1 mg IVPUSH Q3H PRN PRN Reason: Breakthrough Pain Last Admin: 06/23/21 01:05 Dose: 1 mg Documented by: Admin: 06/22/21 17:44 Dose: 1 mg Documented by: CAYETANO Ondansetron HCl (Ondansetron 4 Mg/2 Ml Sdv) 4 mg IVPUSH Q6H PRN PRN Reason: Nausea/Vomiting Last Admin: 06/24/21 09:26 Dose: 4 mg Documented by: BARBARA Oxycodone/Acetaminophen (Acetaminophen/Oxycodone 325-5 Mg Tab) 1 tab PO Q4H PRN PRN Reason: Pain Spironolactone (Spironolactone 25 Mg Tab) 50 mg PO DAILY [facility] Admin: 06/24/21 09:40 Dose: 50 mg Documented by: ABBEY Cosigned by: [email or web address] Admin: 06/23/21 09:14 Dose: 50 mg Documented by: SHARONOCOL - Assessment Assessment (Free Text/Narrative):: Patient is a pleasant 75-year-old female, status post right total knee arthroplasty, postop day #3. No acute events overnight. Patient remains hemodynamically stable. Patient was hypertensive postop day #1, but blood pressures have significantly improved over the past 2 days. Asymptomatic with postoperative anemia. Patient denied dizziness, lightheadedness, dyspnea, vision changes, nor chest pain. Patient also denied subjective fevers and chills. Pain has been well controlled at rest. Increased pain in knee with attempts to weight-bear. Increased pain with weightbearing has limited patient's ambulation abilities. Patient is hesitant to progress with ambulation due to pain, ambulating 18 feet maximum with FWW and x1 assist. Had nausea with Percocet, so [place] has been utilized and tolerating this well without nausea or emesis. Tolerating regular diet well. Compliant with PT and OT services, but noncompliant with nursing requests for ambulation. Patient requires assistance with transfers from bed to chair. Has been using adaptive equipment to assist with leg left, as well as ADLs. Does require assistance and verbal cues for completing ADLs. Past medical history significant for chronic kidney disease stage 5, of which patient refuses dialysis. Strict I&Os have been monitored. Urine output slightly decreased once IV maintenance fluids were discontinued. Continues to require inpatient status to progress functional mobility of right lower extremity with additional therapy services prior to discharge home. Plan: * Continue with physical and occupational therapy services daily to progress functional mobility of right lower extremity. Conversation had with patient regarding compliance with therapy and nursing staff for ambulation and working on ROM to the knee; this is necessary to progress functional mobility and prev ent scar tissue/adhesions from building up in knee. Patient hesitant, but agreeable to participate in QID ambulation and up to chair for all meals. * Pain regimen: Adjusted to allow tapered [place] dosage. Encouraged 2 tabs of 5mg-325 mg [place] prior to physical therapy to help obtain adequate pain control and progress ambulation abilities today. PRN zofran remains available. * Continue with 30 mg Lovenox subcutaneous daily for chemical DVT/VTE prophylaxis and bilateral LE SCDs for mechanical prophylaxis. * Continue to monitor q4 hr vitals. * Postoperative anemia stable at this time, may recheck CBC if patient becomes symptomatic. * CKD stage 5: continue to monitor strict I&Os. Encouraged good oral intake. * Anticipate discharge to home once functional mobility improves and patient is medically stable. DC with home health services has been arranged. Patient will have children staying with her, as well as a neighbor-DEHORNER who will assist as needed upon discharge.
[2021-06-25] MEDS: Acetaminophen/HYDROcodone 325-5 MG Tab PO PRN ×2 (08:41→14:51)
[2021-06-25] MEDS: Nozin Nasal Sanitizer NASBOTH SCH ×2 (08:50→20:21)
[2021-06-25] MEDS: Spironolactone 25 MG Tab PO SCH (08:51)
[2021-06-25] MEDS: Docusate Sodium 100 MG Cap PO SCH ×2 (08:52→20:21)
[2021-06-25] MEDS: Carvedilol 12.5 MG Tab PO SCH ×2 (08:52→20:52)
[2021-06-25] MEDS: amLODIPine 5 MG Tab PO SCH (08:56)
[2021-06-25] MEDS: Losartan 50 MG Tab PO SCH (08:56)
[2021-06-25] MEDS: Enoxaparin 30 MG/0.3 ML Syringe SUBCUT SCH (08:56)
[2021-06-25] MEDS: Allopurinol 100 MG Tab PO SCH (08:57)
[2021-06-26] MEDS: Acetaminophen/HYDROcodone 325-5 MG Tab PO PRN ×2 (06:54→12:24)
[2021-06-26] MEDS: Furosemide 40 MG Tab PO SCH ×2 (07:22→13:25)
[2021-06-26] MEDS: Nozin Nasal Sanitizer NASBOTH SCH (08:30)
[2021-06-26] MEDS: Allopurinol 100 MG Tab PO SCH (08:31)
[2021-06-26] MEDS: Enoxaparin 30 MG/0.3 ML Syringe SUBCUT SCH (08:32)
[2021-06-26] MEDS: amLODIPine 5 MG Tab PO SCH (08:33)
[2021-06-26] MEDS: Carvedilol 12.5 MG Tab PO SCH (08:34)
[2021-06-26] MEDS: Docusate Sodium 100 MG Cap PO SCH (08:35)
[2021-06-26] MEDS: Spironolactone 25 MG Tab PO SCH (08:35)
[2021-06-26] MEDS: Losartan 50 MG Tab PO SCH (08:36)
--- NOTE | 2021-06-26 13:13 | PCM.DCSUM1 ---
Discharge Summary - Hospital Course HPI Initial Comments: Keven 75 y/o female with history of chronic right knee pain. Symptoms refractory to conservative management, elected to undergo a right total knee arthroplasty. Surgery performed on 06/22/21. Patient tolerated surgery well with no complications. No acute events in the postoperative period. Patients hospital stay prolonged for additional therapy services to progress functional mobility of right lower extremity to allow for a safe discharge home. Diagnosis: Stroke: No Modified Charles Scale: No Symptoms at All Modified Charles Scale Score: 0 - Discharge Data Discharge Date: 06/26/21 Discharge Disposition: Home, W Home Health Agency 06 Condition: Good - Referral to Home Health Date of Face to Face Encounter: 06/26/21 Reason for Homebound Status: Motivated to go home, support from cousin, neighbor, and daughter to help out as needed Primary Care Physician: Carlo Wolf NP Skilled Need: physical therapy: progress functional mobility of RLE and ROM to right knee occupational therapy: assist with ADLs as needed. HH services: post- operative vital monitoring - Discharge Diagnosis/Problem(s) (1) Postoperative anemia SNOMED Code(s): 737493936, [id number] ICD Code: D64.9 - ANEMIA, UNSPECIFIED Status: Acute Current Visit: Yes (2) Status post total right knee replacement SNOMED Code(s): 5436412729397, 1262518173019 ICD Code: Z96.651 - PRESENCE OF RIGHT ARTIFICIAL KNEE JOINT Status: Acute Current Visit: Yes - Patient Summary/Data Operative Procedure(s) Performed: right total knee arthroplasty Consults: Consultations 06/22/21 09:39 Consult to Case Management/Offender Employment Specialist [CONS] Routine Comment: Physician Instructions: Service(s) to be Consulted: Case Management Reason for Consult: Plan for Discharge OT Evaluation and Treatment [CONS] Routine Please Evaluate and Treat. OT Reason for Consult: ADL's Special Instructions: s/p RTKA WBAT Aid with ADLS/adaptive equipment as needed for home This query below is only for informational purposes and is not editable. PT Evaluation and Treatment [CONS] Routine Please Evaluate and Treat. PT Reason for Consult: Post op Ortho Surgery Special Instructions: s/p RTKA, WBAT This query below is only for informational purposes and is not editable. PT Evaluation and Treatment [CONS] Routine Please Evaluate and Treat. PT Reason for Consult: Post op Ortho Surgery Knee Pending Discharge: Yes, 1- 2 days Special Instructions: Schedule first outpatient PT appointment in 3-5 day post discharge. This query below is only for informational purposes and is not editable. Hospital Course: Patient is a pleasant 75 y/o female, s/p right total knee arthroplasty, date of surgery: 06/22/21. Patient tolerated surgery well with no complications. No acute events in the post operative period. Aside from blood pressure, vitals have remained within acceptable limits. Patient had hypertension on POD#1; home medications were resumed and blood pressures improved into POD#2 and #3. Did have hypotension the evening of POD#3 and #4, antihypertensive medications were held. Patient was asymptomatic with these fluctuations in blood pressures. Orthostatic blood pressure readings performed on POD#4, sittin/61, standin/73. Patient denied vision changes nor dizziness with transfers from bed to chair nor with ambulation. Does have a cuff at home and intends to monitor blood pressure readings upon discharge. Did have postoperative anemia, POD#1 hemoglobin declined to 11.3. Patient was asymptomatic with this throughout stay; denied lightheadedness, dizziness, nor vision changes. Patient also denied subjective fevers, chills, dyspnea, nor chest pain throughout her stay. Pain was relatively well controlled throughout hospital stay. Patient had nausea and emesis with percocet, transition was made to norco, and patient tolerated this much better without side effects. Tolerated regular diet well. Did have a bowel movement on POD#3. Denied paresthesias of the right lower extremity. Right knee dressing changed POD#1, #3, and #4. Patient was compliant with PT and OT daily. Patient was slow to progress with her ambulation abilities, but by POD#4, ambulated up to 123 feet with FWW and x1 SBA. Is able to sit to stand with the walker. ROM to right knee improved after post-operative dressing was removed, flexion to 78 degrees. Does have extension lag of about 8 degrees. Has been using adaptive equipment for assistance with ADLs. Patients past medical history significant for chronic kidney disease stage 5. Patient refuses dialysis. IV fluids were discontinued POD#1 and west catheter discontinued POD#2. Strict I&Os monitored throughout stay. Did have a slight decrease in urine output with discontinuation of IV fluids. - Patient Instructions Diet: Renal Diet Activity: Apply Ice, Full Weight Bearing Driving: Do Not Drive Showering/Bathing: May Shower Wound/Incision Care: Keep Operative Site/Wound Site Clean and Dry, Change Dressing Daily Notify Provider of: Fever, Increased Pain, Swelling and Redness, Drainage - Discharge Plan *PRESCRIPTION DRUG MONITORING PROGRAM REVIEWED*: Yes *COPY OF PRESCRIPTION DRUG MONITORING REPORT IN PATIENT JOSÉ: Not Applicable Prescriptions/Med Rec: Docusate Sodium [Colace] 100 mg PO BID #30 cap Acetaminophen/HYDROcodone [HYDROcodone-Acetaminophen 325-5 MG] 1 - 2 tab PO Q6H PRN #35 tab PRN Reason: Pain Home Medications: Home Meds Aspirin [Halfprin] 81 mg PO DAILY 04/15/21 [History] Furosemide [Lasix] 40 mg PO BID 04/15/21 [History] Losartan [Cozaar] 100 mg PO DAILY 04/15/21 [History] Multivit-Min/Folic Acid/Vit K1 [Multi For Her 50 Plus Softgel] 1 tab PO DAILY 04/15/21 [History] Spironolactone [Aldactone] 50 mg PO DAILY 04/15/21 [History] allopurinoL [Zyloprim] 300 mg PO DAILY 04/15/21 [History] amLODIPine Besylate [Norvasc] 10 mg PO DAILY 04/15/21 [History] carvediloL [Coreg] 25 mg PO BID 04/15/21 [History] traMADol [Ultram] 50 mg PO Q8H PRN #12 tablet 05/12/21 [Rx] Acetaminophen/HYDROcodone [HYDROcodone-Acetaminophen 325-5 MG] 1 - 2 tab PO Q6H PRN #35 tab 06/26/21 [Rx] Docusate Sodium [Colace] 100 mg PO BID #30 cap 06/26/21 [Rx] Patient Handouts: Total Knee Replacement, Care After, [id number], Preventing Problems After Surgery, How to Prevent Constipation After Surgery Referrals: Clarita Rodríguez PA [Ordering Only Provider] - 07/16/21 10:30 am (Please arrive 15 minutes early to register for your appointment.) Hansel Castelan MD [Physician] - 07/03/21 1:20 pm (Please arrive 15 minutes early to register for your appointment.) - Discharge Summary/Plan Comment DC Time >30 min.: Yes Total # of Minutes for Discharge Time: 35 Discharge Summary/Plan Comment: -Prescription sent for pain control: 5mg-325mg [place], 1-2 tabs PO q6 hrs prn for pain. -Encouraged continuation of stool softener while on opioid pain medication. -Educated patient on warning signs of DVT/VTE and SSI; any concerns, she should contact the clinic or visit her local ER. -Educated to take 1 aspirin (81 mg or 325 mg) BID for DVT/VTE prophylaxis. -Patient instructed to take blood pressure daily, if under 120/80, should hold on antihypertensive medications. Will follow up with Dr. Dillon on 07/03/21 for continued medical management regarding blood pressure and chronic kidney disease. -Continue with Nozin spray BID -May shower; leave Steristrips on and let water run over the top. They will fall off in 5-7 days. Do not vigorously scrub incision, no submerging incision in bath water. Do not need to place dressing over incision, but may choose to do so if Steristrips are catching on clothing. -Follow up with orthopedics in 2 weeks; contact clinic with any concerns or questions that arise prior to scheduled apt. - General Info Date of Service: 06/26/21 Admission Dx/Problem (Free Text: s/p right total knee arthroplasty Functional Status: Reports: Pain Controlled, Tolerating Diet, Ambulating (with FWW ), Urinating, Incentive Spirometry - Review of Systems General: Denies: Fever, Weakness, Malaise, Chills HEENT: Denies: Visual Changes Pulmonary: Denies: Shortness of Breath Cardiovascular: Denies: Chest Pain, Palpitations Gastrointestinal: Denies: Constipation, Nausea, Vomiting Musculoskeletal: Reports: Leg Pain (right ), Joint Pain (right knee ), Joint Swelling (right knee ) Skin: Reports: Bruising Neurological: Reports: No Symptoms Psychiatric: Reports: No Symptoms - Patient Data Vitals - Most Recent: Last Vital Signs Temp 95.4 F L 06/26/21 11:00 Pulse 63 06/26/21 11:00 Resp 14 06/26/21 11:00 BP 125/73 06/26/21 12:30 Pulse Ox 92 L 06/26/21 11:00 Weight - Most Recent: 138 lb I&O - Last 24 hours: Intake & Output 06/25/21 06/26/21 06/26/21 22:59 06:59 14:59 Intake Total 250 150 Balance 250 150 Med Orders - Current: Current Medications Acetaminophen (Acetaminophen 325 Mg Tab) 650 mg PO Q4H PRN PRN Reason: Pain/Fever Hydrocodone Bitart/Acetaminophen (Acetaminophen/Hydrocodone 325-5 Mg Tab) 1 - 2 tab PO Q4H PRN PRN Reason: Pain Last Admin: 06/26/21 12:24 Dose: 2 tab Documented by: Allopurinol (Allopurinol 100 Mg Tab) 300 mg PO DAILY [facility] Last Admin: 06/26/21 08:31 Dose: 300 mg Documented by: Amlodipine Besylate (Amlodipine 5 Mg Tab) 10 mg PO DAILY [facility] Last Admin: 06/26/21 08:33 Dose: Not Given Documented by: Bandage/Support Products (Nozin Nasal Computer Network Support Specialist) 1 applic NASBOTH BID [facility] Stop: 06/28/21 21:01 Last Admin: 06/26/21 08:30 Dose: 1 applic Documented by: Calcium Carbonate/Glycine (Calcium Carbonate 500 Mg Tab.Chew) 1,000 mg PO Q2H PRN PRN Reason: Indigestion Last Admin: 06/24/21 09:26 Dose: 1,000 mg Documented by: Carvedilol (Carvedilol 12.5 Mg Tab) 25 mg PO BID [facility] Last Admin: 06/26/21 08:34 Dose: Not Given Documented by: Cyclobenzaprine HCl (Cyclobenzaprine 10 Mg Tab) 5 mg PO Q8H PRN PRN Reason: Muscle Spasm - Painful Last Admin: 06/25/21 00:10 Dose: 5 mg Documented by: Diazepam (Diazepam 2 Mg Tab) 2 mg PO BEDTIME PRN PRN Reason: Insomnia Last Admin: 06/22/21 22:01 Dose: 2 mg Documented by: Docusate Sodium (Docusate Sodium 100 Mg Cap) 100 mg PO BID [facility] Last Admin: 06/26/21 08:35 Dose: 100 mg Documented by: Enoxaparin Sodium (Enoxaparin 30 Mg/0.3 Ml Syringe) 30 mg SUBCUT DAILY [facility] Last Admin: 06/26/21 08:32 Dose: 30 mg Documented by: Furosemide (Furosemide 40 Mg Tab) 40 mg PO BIDDIURETIC [facility] Last Admin: 06/26/21 07:22 Dose: 40 mg Documented by: Hydroxyzine HCl (Hydroxyzine Hcl 10 Mg Tab) 10 mg PO Q8H PRN PRN Reason: Muscle Spasm - Painful Last Admin: 06/23/21 09:14 Dose: 10 mg Documented by: Losartan Potassium (Losartan 50 Mg Tab) 100 mg PO DAILY [facility] Last Admin: 06/26/21 08:36 Dose: Not Given Documented by: Magnesium Hydroxide (Magnesium Hydroxide 400 Mg/5 Ml Susp 30 Ml Cup) 30 ml PO BID PRN PRN Reason: Constipation Last Admin: 06/25/21 14:51 Dose: 30 ml Documented by: Morphine Sulfate (Morphine 2 Mg/Ml Syringe) 1 mg IVPUSH Q3H PRN PRN Reason: Breakthrough Pain Last Admin: 06/23/21 01:05 Dose: 1 mg Documented by: Ondansetron HCl (Ondansetron 4 Mg/2 Ml Sdv) 4 mg IVPUSH Q6H PRN PRN Reason: Nausea/Vomiting Last Admin: 06/24/21 09:26 Dose: 4 mg Documented by: Oxycodone/Acetaminophen (Acetaminophen/Oxycodone 325-5 Mg Tab) 1 tab PO Q4H PRN PRN Reason: Pain Spironolactone (Spironolactone 25 Mg Tab) 50 mg PO DAILY [facility] Last Admin: 06/26/21 08:35 Dose: 50 mg Documented by: Discontinued Medications Hydrocodone Bitart/Acetaminophen (Acetaminophen/Hydrocodone 325-5 Mg Tab) 1 tab PO Q4H PRN PRN Reason: Pain Last Admin: 06/24/21 21:12 Dose: 1 tab Documented by: Bandage/Support Products (Nozin Nasal Computer Network Support Specialist) 1 applic NASBOTH ONETIME ONE Stop: 06/22/21 07:01 Last Admin: 06/22/21 06:55 Dose: 1 applic Documented by: Fentanyl (Fentanyl 100 Mcg/2 Ml Sdv) Confirm Administered Dose 100 mcg .ROUTE .STK-MED ONE Stop: 06/22/21 07:40 Cefazolin Sodium/Dextrose 2 gm (/ Premix) 50 mls @ 100 mls/hr IV ONETIME ONE Stop: 06/22/21 07:29 Last Admin: 06/22/21 07:41 Dose: 100 mls/hr Documented by: Lactated Ringer's (Ringers, Lactated) 1,000 mls @ 75 mls/hr IV ASDIRECTED SHARON Last Admin: 06/22/21 06:00 Dose: 75 mls/hr Documented by: Tranexamic Acid 625 mg/ Sodium (Chloride) 56.25 mls @ 225 mls/hr IV ONETIME ONE Stop: 06/22/21 07:44 Last Admin: 06/22/21 08:14 Dose: 225 mls/hr Documented by: Tranexamic Acid 625 mg/ Sodium (Chloride) 56.25 mls @ 225 mls/hr IV ONETIME PRN PRN Reason: 2ND DOSE IF REQUESTED BY MD Sams Ringer's (Ringers, Lactated) Confirm Administered Dose 1,000 mls @ as directed .ROUTE .STK-MED ONE Stop: 06/22/21 09:16 Sodium Chloride (Normal Saline) 1,000 mls @ 125 mls/hr IV [facility] Last Admin: 06/23/21 10:42 Dose: 100 mls/hr Documented by: Cefazolin Sodium/Dextrose 1 gm (/ Premix) 50 mls @ 200 mls/hr IV Q8H [facility] Stop: 06/23/21 06:14 Last Admin: 06/23/21 05:47 Dose: 200 mls/hr Documented by: Sodium Chloride (Normal Saline) 1,000 mls @ 100 mls/hr IV [facility] Midazolam HCl (Midazolam 1 Mg/Ml 2 Ml Sdv) Confirm Administered Dose 2 mg .ROUTE .STK-MED ONE Stop: 06/22/21 07:40 Morphine Sulfate (Morphine 2 Mg/Ml Syringe) 1 mg IVPUSH Q1H PRN PRN Reason: Breakthrough Pain Last Admin: 06/22/21 12:50 Dose: 1 mg Documented by: Oxycodone/Acetaminophen (Acetaminophen/Oxycodone 325-5 Mg Tab) 1 - 2 tab PO Q4H PRN PRN Reason: Pain Last Admin: 06/24/21 02:53 Dose: 1 tab Documented by: Povidone Iodine (Povidone-Iodine 10% Soln 118.25 Ml Bottle) Confirm Administered Dose 1 ml .ROUTE .STK-MED ONE Stop: 06/22/21 06:42 Propofol (Propofol 200 Mg/20 Ml Sdv) Confirm Administered Dose 200 mg .ROUTE .STK-MED ONE Stop: 06/22/21 07:40 Propofol (Propofol 200 Mg/20 Ml Sdv) Confirm Administered Dose 200 mg .ROUTE .[employer] [employer] ONE Stop: 06/22/21 08:52 - Exam Quality Assessment: Reports: DVT Prophylaxis General: Reports: Alert, Oriented, Cooperative, No Acute Distress Extremities: Pedal Edema, Joint Swelling (right knee ), Leg Pain (right ), Limited Range of Motion (right knee due to postoperative pain and swelling ), Other (tibial pulse, 2+. Dorsiflexion: 3/5. Plantar flexion: 3+/5. Incision well approximated, steristrips above with dried drainage. No surrounding erythema, active drainage, nor significant warmth. Diffuse, moderate post-operative swelling of right knee, extending into calf and pedal region. ). No: Eliecer's Sign Skin: Reports: Warm, Dry, Intact Wound/Incisions: Reports: Healing Well, Dressing Dry and Intact, No Drainage Neurological: Reports: No New Focal Deficit Psy/Mental Status: Reports: Alert, Normal Affect, Normal Mood
--- NOTE | 2021-07-02 08:21 | OR ---
DATE OF PROCEDURE: 06/22/2021 SURGEON: Brenden Coyne MD PREOPERATIVE DIAGNOSIS: Osteoarthritis, right knee. POSTOPERATIVE DIAGNOSIS: Osteoarthritis, right knee, severe, medial. PROCEDURE: Right total knee arthroplasty using Lani Persona components with a size 5 femur, D tibia, 12 mm polyethylene, and 29 mm patella. POWER SAW OPERATOR: TISH Carson ANESTHESIA: Spinal with sedation. INDICATIONS: Gianna is a very pleasant 75-year-old female with a history of progressive pain and loss of mobility in the right knee. X-rays reveal severe medial joint space collapse. She now presents for right total knee arthroplasty. Risks, benefits, and potential complications of the procedure were discussed. DESCRIPTION OF PROCEDURE: After adequate anesthesia was obtained, the patient was placed supine with a tourniquet about the right upper thigh, and right leg was prepped and draped in a sterile fashion. Leg exsanguinated and tourniquet inflated to 300 mmHg pressure. A longitudinal incision was made over the anterior aspect of the knee and carried down through the subcutaneous tissues. Medial parapatellar arthrotomy was performed. Mild effusion is present. Medial release was performed along the tibial plateau and the patella is everted. Posterior aspect of the patella was resected with an oscillating saw. Knee was flexed. Intramedullary canal is drilled and the distal femoral cutting guide was then placed. This is pinned into position. Intramedullary guide was removed and the distal femoral cut is made. Extramedullary tibial jig was placed. This was aligned and secured to the tibia, and the proximal tibia was resected with an oscillating saw. The guide was removed. Medial and lateral menisci were excised. Attention is returned to the femur, which is sized to a number 5 component. The appropriate cutting jig was placed on the distal femur and remaining anterior, posterior, and chamfer cuts were made. Trial femoral component is positioned in the intercondylar notch. Resection is done for a posterior cruciate- sacrificing component. The femur is sized to a D component. The tibial tray was pinned in position and tibial preparation completed with the large reamer and punch. Trial reduction was done with 10 and 12 mm inserts with 12 mm providing good balance in flexion and extension. The patella is measured at 29. Patella was drilled and a trial patella was placed, which tracked well. Trial components were removed. The knee was thoroughly irrigated with pulse lavage. The bone surfaces were dried and components were cemented in place. Excess cement was removed. The knee was held in full extension with a 12 mm trial insert as cement cured. Knee was again taken through range of motion. Flexion, extension, balance are assessed, and the 12 mm is selected. The trial was removed. Final implant is snapped into position. The knee is irrigated with pulse lavage. This was followed by a dilute Betadine irrigation which was left in place for 2-1/2 minutes and irrigated with a pulse lavage once again. The capsule was closed with #2 Ethibond in interrupted fashion. Skin was closed with 2-0 Vicryl and a running 3-0 Monocryl. Steri-Strips were applied. Light compressive dressing was then placed. The patient tolerated the procedure very well. There were no complications. Taken from the operating room in stable condition. Brenden Coyne MD /[id number]
== END 2021-06-26 16:00 | disposition home health service (06) | DRG 470 ==
LOC: JP.SDS 05:31 → JP.MS 10:29 → JP.SDS 06-23 10:46
PROVIDERS: ADMIT Specialist; ATTEND Specialist
PROC: 0SRC0J9 Replacement of Right Knee Joint with Synthetic Substitute, Cemented, Open Approach (ICD-10-PCS; principal; 2021-06-22)
DX: M17.11 Unilateral primary osteoarthritis, right knee (principal); N18.5 Chronic kidney disease, stage 5; I12.9 Hypertensive chronic kidney disease with stage 1 through stage 4 chronic kidney disease, or unspecified chronic kidney disease; E21.3 Hyperparathyroidism, unspecified; M10.9 Gout, unspecified; E78.5 Hyperlipidemia, unspecified; E66.9 Obesity, unspecified; Z66 Do not resuscitate; D64.9 Anemia, unspecified; Z79.82 Long term (current) use of aspirin; Z79.899 Other long term (current) drug therapy; Z90.49 Acquired absence of other specified parts of digestive tract
CPT/HCPCS: 36415; 73560-26-RT; 73560-RT; 85027; 97110-GP; 97116-GP; 97162-GP; 97165-GO; 97530-GP; 97535-GO; A9270-GY; C1713; C1776; J0690; J1650; J2250; J2270; J2405; J2704; J3010; J7030; J7120